=== PATIENT | female | born 1990 | race Caucasian/White ===

== ENCOUNTER → 2017-04-01 | Outpatient (CLI) | payer BC, OTHER ==
[2017-04-01 13:54] LABS: BASO % 0.2 %; BASO ABS # 0.01 K/uL (0-0.2); COMPLETE YES; EOS % 1.6 %; HEMATOCRIT 39.7 % (37-47); IG% 0.2 %; LYMPH % 27.4 %; LYMPH ABS # 1.53 K/uL (1.2-3.4); MEAN CORPUSCULAR HEMOGLOBIN 30.4 pg (25-34); MEAN CORPUSCULAR HGB CONC 34.5 g/dl (32-36); MEAN PLATELET VOLUME 9.6 fL (7.4-10.4); MONO % 10.9 %; NEUT % 59.7 %; PLATELET COUNT 312 K/uL (130-400); RED BLOOD COUNT 4.51 M/uL (4.2-5.4); WHITE BLOOD COUNT 5.59 K/uL (4.8-10.8)
[2017-04-01 14:04] LABS: ALT/SGPT 18 U/L (12-78); AST/SGOT 12 U/L (15-37); BLOOD UREA NITROGEN 8 mg/dl (7-18); BUN/CREATININE RATIO 12.4 (10-20); CALCIUM 9.1 mg/dl (8.5-10.1); CARBON DIOXIDE 28 mmol/L (21-32); CHLORIDE 104 mmol/L (98-107); CREATININE 0.68 mg/dl (0.60-1.20); GLUCOSE 93 mg/dl (70-99); POTASSIUM 3.9 mmol/L (3.5-5.1); SODIUM 138 mmol/L (136-145)
[2017-04-01 14:14] LABS: ALB/GLOB RATIO 1.2 (0.9-2); ALKALINE PHOSPHATASE 119 U/L (45-117); THYROID STIMULATING HORMONE 0.061 uIu/ml (0.300-4.500)
== END | disposition home or self-care (01) ==
LOC: C.LABSPEC 12:59
PROVIDERS: ATTEND Family Medicine
DX: E03.9 Hypothyroidism, unspecified (principal)

== ENCOUNTER → 2017-06-10 | Outpatient (CLI) | payer BC ==
[2017-06-15 17:40] LABS: ANA SCREEN TC 249X NEGATIVE (NEGATIVE); COMPLEMENT C4** TC 44982E 28 MG/DL (16-47); COMPLEMENT TOTAL(CH50)**45328P >60 U/mL (31-60); TSI <89 % baseline (<140)
== END | disposition home or self-care (01) ==
LOC: C.LABSPEC 13:15
PROVIDERS: ATTEND Family Medicine
DX: E03.9 Hypothyroidism, unspecified (principal); R63.5 Abnormal weight gain

== ENCOUNTER 2019-12-05 07:45 | Inpatient (IN) ==
[2019-12-05] MEDS ORDERED: OXYTOCIN 30 UNITS/500 ML BAG IV PRN ×2 (07:59→09:36)
--- NOTE | 2019-12-05 08:15 | History & Physical Report ---
Date of Service December 05, 2019 Assessment & Plan (1) : Tereza De Santiago is a 29 y/o female , at 40weeks; here for induction of labor - GBS positive; will give one dose Pen G now and then Q4h until delivery - continue heart monitoring and tocometry - consider Pitocin for labor augmentation - continue to monitor BP for concerns of pre-eclampsia - CBC/CMP pending (2) Gestational diabetes mellitus (GDM) controlled on oral hypoglycemic drug, antepartum: Admission and Anticipated Discharge Date Admission Date: December 05, 2019 History of Present Illness Primary Care Provider: Deny Esquivel Tereza De Santiago is a 29 y/o female , at 40weeks; being admitted for induction of labor; complications with GDM during this ; no contractions; good movement; no fluid loss; no vaginal blood loss; rodriguez bulb fell out last night prior to leaving L&D Labs: (06/07/19) Blood type: O+ Antibody screen: negatve H.8 Hct: 38.7 Rubella: immune VDRL/RPR: nonreactive Gonorrhea: negative Chlamydia: negative HIV: negative HbSAg: negative GBS + (11/08/19) Allergies Allergy/AdvReac Type Severity Reaction Status Date / Time No Known Allergies Allergy Verified 12/05/19 08:23 Home Medications Home Medications Medication Instructions Recorded Confirmed Type blood sugar diagnostic #150 ea 10/22/19 11/26/19 Rx lancets #100 ea 10/22/19 11/26/19 Rx metformin 500 mg PO BID 12/04/19 12/05/19 History vit [id number] 1 tab PO DAILY 12/04/19 12/05/19 History [ Vitamin] thyroid (pork) 130 mg PO DAILY 12/04/19 12/05/19 History Past Med/Surg History Medical History History of chicken pox Hypothyroidism Infertility tried for 2 years and conceived on Metformin SAB (spontaneous ) 2017; D&C Surgical History S/P dilatation and curettage [place] teeth removed Family History Sister Thyroid disease Brother Bicuspid aortic valve Social History Preferred Language: Vincentian Communication Ability: Effective 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 Beliefs That Will Affect Care: None marital status: marital status details: Alvaro Duncan (28) [phone] Current Living Situation: Spouse Current Living Situation Comment: lives with spouse, dogs current occupational status: employed current occupation: [employer] Other Information That Helps Us Care for You: No Feels Safe at Home: Yes Safety Concerns: Feels Safe At This Time Smoking Status: Never smoker Second Hand Exposure: No ; Hx Alcohol Use: No Hx Substance Use: No Review of Systems Review of Systems: Constitutional: denies fever; chills; sweats; headache Respiratory: denies shortness of breath, difficulty breathing Cardiac: denies chest pain; palpitations; chest pressure Breast: denies breast pain : denies dysuria Physical Exam Physical Exam: General: alert; oriented; no acute distress Cardiac: RRR; no m/g/r Respiratory: CTAB a/p; no wheezes/rales/rhonchi; no increased work of breathing; symmetrical chest rise; no respiratory distress Abdomen: soft; NT/ND; bowel sounds positive Lower extrem: no lower extremity edema or swelling; no deep calf pain; Deanna's sign negative b/l Genitourinary: OB Exam Abdomen: + vertex and + estimated weight (7-8 pounds) Manual OB Exam: + cervical dilation 4 cm (4-5 cm), + cervical effacement 90% and + station -1 (posterior) OB Exam Monitor Tracing: + external FHT monitor used, + external uterine monitor used, + category I and + normal FHT variability deferred cervical exam to Dr. Navarro Results & Data Results & Data ([facility]) Vital Signs (Past 12 Hours) Vital Signs Temp Pulse Resp BP 12/05/19 08:04 92 H 159/90 H 12/05/19 07:54 36.8 C 87 20 171/93 H Medications Administered Current Inpatient Medications Lactated Ringer's (Lr) 1,000 mls @ 125 mls/hr IV .Q8H PRN; Protocol PRN Reason: L&D Protocol Stop: 12/07/19 07:58 Oxytocin (Pitocin) 30 units in 500 mls @ 333.333 mls/hr IV .Q1H30M PRN; Protocol PRN Reason: Bleeding Control Stop: 01/04/20 07:58 Penicillin G Potassium 6 mu/ (Dextrose) 262 mls @ 262 mls/hr IV NOW STA Stop: 12/05/19 08:58 Penicillin G Potassium 3 mu/ (Dextrose) 106 mls @ 100 mls/hr IV Q4H PRN PRN Reason: Give until delivery Stop: 12/15/19 07:58 Supervising Physician Co-Signing Physician Notes Resident Physician Supervision Note: I interviewed and examined the patient. Discussed with Dr. Pichardo and agree with findings and plan as documented in the note. Any exceptions or clarifications are listed here: cervical exam performed by me. Documented By: Sarika Covington MD, FACOG Resident Activity Tracking Resident Involvement: Resident Care Provided Care Provided: OB Delivery
[2019-12-05] MEDS ORDERED: PENICILLIN G POTASSIUM 6 MU in DEXTROSE 5% 250 ML IV ONE (08:30)
[2019-12-05 08:31] LABS: Hematocrit (blood only) 40.3 % (37-47); Hemoglobin 13.6 g/dL (12.0-16.0); Mean Corpuscular Hemoglobin 30.2 pg (25-34); Mean Corpuscular Volume 89.4 fL (80-100); Mean Platelet Volume 9.8 fL (7.4-10.4); Platelet Count 306 K/uL (130-400); RDW Coefficient of Variation 13.7 % (11.5-14.5); RDW Standard Deviation 45.1 fL (36.4-46.3); Red Blood Count 4.51 M/uL (4.2-5.4); White Blood Count 8.76 K/uL (4.8-10.8)
[2019-12-05 08:36] LABS: Mean Corpuscular Hgb Conc 33.7 g/dL (32-36)
[2019-12-05 09:01] LABS: Albumin Level 2.5 gm/dl (3.4-5.0); BUN Creatinine Ratio 10.7 (10-20); Est GFR (African American) 138.4; Est GFR (Non-African American) 119.4; Potassium 3.7 mmol/L (3.5-5.1)
[2019-12-05 09:03] LABS: Albumin Globulin Ratio 0.7 (0.9-2); Bilirubin,Total 0.2 mg/dl (0.2-1); Globulin 3.7 gm/dl (2.5-4.0); Total Protein 6.2 gm/dl (6.4-8.2)
[2019-12-05] MEDS: LACTATED RINGER'S 1,000 ML IV PRN ×3 (09:25→16:53)
[2019-12-05] MEDS: PENICILLIN G POTASSIUM 3 MU in DEXTROSE 5% 100 ML IV PRN ×3 (12:59→21:11)
[2019-12-05] MEDS ORDERED: ePHEDrine sulfate 50 MG/ML AMP ONE (13:42)
[2019-12-05] MEDS ORDERED: fentaNYL 2MCG/ML ROPIV 1.25MG/ML 100 ML BAG EPI ONE (13:42)
[2019-12-05] MEDS ORDERED: BUPIVACAINE 0.25% 30 ML VIAL ONE (13:42)
[2019-12-05] MEDS ORDERED: fentaNYL citrate 100 MCG/2 ML VIAL ONE (13:42)
--- NOTE | 2019-12-05 15:02 | Anesthesiology Consultation ---
Date of Service December 05, 2019 Assessment & Plan Chart Review Chart Review: Acceptable Risk for Labor Epidural Consults Requested none History Height/Weight Height: 5 ft 2 in Weight: 106.141 kg Allergies Allergy/AdvReac Type Severity Reaction Status Date / Time No Known Allergies Allergy Verified 12/05/19 08:23 Medications Home Medications Medication Instructions Recorded Confirmed Last Taken blood sugar diagnostic #150 ea 10/22/19 11/26/19 Unknown lancets #100 ea 10/22/19 11/26/19 Unknown metformin 500 mg PO BID 12/04/19 12/05/19 12/05/19 06:00 vit [id number] 1 tab PO DAILY 12/04/19 12/05/19 12/04/19 23:00 [ Vitamin] thyroid (pork) 130 mg PO DAILY 12/04/19 12/05/19 12/05/19 06:00 Active Medications Generic Name Dose Route Start Last Admin Trade Name Freq PRN Reason Stop Dose Admin Lactated Ringer's 1,000 mls @ 125 mls/hr 12/05/19 07:59 12/05/19 13:45 Lr IV 12/07/19 07:58 999 mls/hr .Q8H PRN Infusion L&D Protocol Protocol Penicillin G Potassium 3 mu/ 106 mls @ 100 mls/hr 12/05/19 07:59 12/05/19 12:59 Dextrose IV 12/15/19 07:58 100 mls/hr Q4H PRN Administration Give until delivery Oxytocin 30 units in 500 mls @ 15 mls/hr 12/05/19 09:36 12/05/19 13:30 Pitocin IV 12/07/19 09:35 0.9 units/hr .Q24H PRN 15 mls/hr Labor Induction/Augmentation Titration Protocol 0.9 UNITS/HR Past Medical History Medical History History of chicken pox Hypothyroidism Infertility tried for 2 years and conceived on Metformin SAB (spontaneous ) 2017; D&C Past Family History Family History Sister Thyroid disease Brother Bicuspid aortic valve Past Surgical History Surgical History S/P dilatation and curettage [place] teeth removed Social History Smoking Status: Never smoker Hx Alcohol Use: No Hx Substance Use: No substance use type: does not use Physical Exam Vital Signs Last Vital Signs Temp 36.7 C 12/05/19 14:00 Pulse 96 H 12/05/19 14:59 Resp 20 12/05/19 14:00 BP 125/62 12/05/19 14:59 Pulse Ox 96 12/05/19 14:56 Testing Laboratory Results 12/05/19 08:04 12/05/19 08:11
[2019-12-05] MEDS ORDERED: ePHEDrine sulfate 50 MG/ML AMP IV PRN (15:04)
[2019-12-05] MEDS ORDERED: DiphenhydrAMINE HCL 50 MG/ML VIAL IV PRN (15:04)
[2019-12-05] MEDS ORDERED: fentaNYL 2MCG/ML ROPIV 1.25MG/ML 100 ML BAG EPI PRN (15:04)
[2019-12-05] MEDS ORDERED: NALBUPHINE HCL INJ 10 MG/ML AMP IV PRN (15:04)
[2019-12-05] MEDS ORDERED: NALOXONE HCL 1 MG in SODIUM CHLORIDE 0.9% 1000ML 1,000 ML IV PRN (15:04)
[2019-12-05] MEDS ORDERED: NALOXONE HCL 0.4 MG/1 ML VIAL/CARP IV PRN (15:04)
[2019-12-05] MEDS ORDERED: ONDANSETRON INJ 2 MG/ML 2 ML VIAL IV PRN (17:12)
[2019-12-06] MEDS ORDERED: bisacodyL 10 MG SUPP PR PRN (00:41)
[2019-12-06] MEDS ORDERED: DIPHTHERIA/TETANUS/PERTUSSIS 0.5 ML SYR/VIAL IM ONE (00:41)
[2019-12-06] MEDS ORDERED: OXYTOCIN 30 UNITS/500 ML BAG IV PRN (00:41)
[2019-12-06] MEDS ORDERED: SUPERCREAM 0.870% 15 GM JAR EXT PRN (00:41)
[2019-12-06] MEDS ORDERED: HYDROCORTISONE ACETATE 25 MG SUPP PR PRN (00:41)
[2019-12-06] MEDS ORDERED: ACETAMINOPHEN 325 MG TAB PO PRN (00:41)
[2019-12-06] MEDS ORDERED: OXYCODONE/ACETAMINOPHEN 5mg/325mg TAB PO PRN (00:44)
[2019-12-06] MEDS ORDERED: IBUPROFEN 600 MG TAB PO ONE (01:34)
--- NOTE | 2019-12-06 01:53 | Anesthesia Procedure Note ---
Date of Service December 06, 2019 Anesthesia Post Epidural Note Vital Signs Vital Signs: Temp Pulse Resp BP Pulse Ox 37.0 C 82 18 128/72 98 12/05/19 23:00 12/06/19 01:40 12/06/19 01:25 12/06/19 01:40 12/06/19 00:21 Pain Intensity Abdomen: Pain Intensity: 2 Notes Mental Status: alert / awake / arousable Nausea / Vomiting: adequately controlled Pain: adequately controlled Airway Patency, RR, SpO2: stable & adequate BP & HR: stable & adequate Hydration State: stable & adequate Neuraxial Anesthesia: was administered and sensory block is resolving Anesthetic Complications: no major complications apparent and Pt Satisfied with anesthetic care Epidural: Removed without complications and With tip intact
[2019-12-06] MEDS: BENZOCAINE 20% AER SPR 82.5 GM CAN EXT PRN (04:01)
--- NOTE | 2019-12-06 05:42 | Obstetrical Progress Note ---
Date of Service <Lopez Pichardo MD - Last Filed: 12/06/19 07:08> December 06, 2019 Assessment & Plan <Lopez Pichardo MD - Last Filed: 12/06/19 07:08> (1) : PPD#1: - doing well, ambulating well, tolerating oral intake - continue routine care - after discharge will have 6 week follow-up with Dr. Melanie Matthews <Lopez Pichardo MD - Last Filed: 12/06/19 07:08> Tereza De Santiago is a 29 y/o female ; PPD #1 following spontaneous vaginal delivery at 40 weeks; doing well this morning; minimal abdominal cramping/pain; voiding well; tolerating meals overnight; and able to ambulate some; some persistent spotting with intermittent improvement this morning. Review of Systems Constitutional: denies fever; chills; sweats; headache Respiratory: denies shortness of breath, difficulty breathing Cardiac: denies chest pain; palpitations; chest pressure Breast: denies breast pain : denies dysuria Physical Exam <Lopez Pichardo MD - Last Filed: 12/06/19 07:08> General: alert; oriented; no acute distress Cardiac: RRR; no m/g/r Respiratory: CTAB a/p; no wheezes/rales/rhonchi; no increased work of breathing; symmetrical chest rise; no respiratory distress Abdomen: soft; NT/ND; bowel sounds positive Uterus: uterine fundus firm; palpable 2cm below umbilicus Lower extrem: no lower extremity edema or swelling; no deep calf pain; Deanna's sign negative b/l Results & Data <Lopez Pichardo MD - Last Filed: 12/06/19 07:08> Vital Signs (Past 12 Hours) Vital Signs Temp Pulse Pulse Resp BP BP Pulse Ox 12/06/19 03:10 36.6 C 103 H 18 143/87 H 97 12/06/19 02:26 37.0 C 79 18 132/74 12/06/19 02:10 78 127/60 12/06/19 01:56 90 18 135/74 12/06/19 01:40 82 128/72 12/06/19 01:25 79 18 140/91 12/06/19 01:14 99 H 18 142/93 H 12/06/19 00:59 105 H 18 139/101 H 12/06/19 00:40 77 18 138/72 12/06/19 00:25 95 H 18 141/78 H 12/06/19 00:21 99 H 98 12/06/19 00:16 111 H 98 12/06/19 00:11 108 H 100 12/06/19 00:06 93 H 165/90 H 99 12/06/19 00:01 97 H 98 12/05/19 23:58 140 H 91 12/05/19 23:56 151 H 97 12/05/19 23:52 106 H 137/60 12/05/19 23:51 113 H 89 L 12/05/19 23:46 121 H 100 12/05/19 23:41 111 H 99 12/05/19 23:36 111 H 132/92 96 12/05/19 23:31 111 H 97 12/05/19 23:26 111 H 98 12/05/19 23:21 112 H 128/62 97 12/05/19 23:16 106 H 95 12/05/19 23:11 105 H 96 12/05/19 23:07 105 H 127/88 12/05/19 23:06 121 H 96 12/05/19 23:01 129 H 98 12/05/19 23:00 37.0 C 12/05/19 22:56 105 H 96 12/05/19 22:51 96 H 96 12/05/19 22:46 104 H 97 12/05/19 22:41 127 H 96 12/05/19 22:37 94 H 133/86 12/05/19 22:36 119 H 91 12/05/19 22:34 120 H 93 12/05/19 22:31 101 H 98 12/05/19 22:26 126 H 96 12/05/19 22:22 93 H 131/60 12/05/19 22:21 121 H 94 12/05/19 22:16 125 H 93 12/05/19 22:11 110 H 98 12/05/19 22:07 97 H 166/83 H 12/05/19 22:06 122 H 86 L 12/05/19 22:04 150 H 89 L 12/05/19 22:01 128 H 98 12/05/19 21:56 107 H 99 06/17/20 21:51 108 H 100 20 21:46 82 99 061720 21:41 86 98 20 21:36 112 H 99 20 21:31 87 98 20 21:26 104 H 99 20 21:21 81 98 20 21:16 91 H 97 20 21:11 76 97 20 21:06 79 96 20 21:01 83 98 20 21:00 36.5 C 20 20:56 90 99 1720 20:55 91 H 88 L 20 20:51 82 98 1720 20:46 78 99 1720 20:41 83 98 20 20:36 97 H 97 1720 20:31 79 98 20 20:26 77 96 1720 20:22 82 124/82 20 20:21 93 H 96 20 20:16 94 H 99 20 20:11 79 98 1720 20:06 105 H 137/94 97 1720 20:01 85 97 1720 19:56 96 H 98 20 19:52 101 H 135/93 1720 19:51 89 98 1720 19:46 85 97 1720 19:41 87 98 1720 19:36 74 99 1720 19:31 74 99 1720 19:26 77 98 1720 19:21 83 98 1720 19:16 83 99 1720 19:11 81 100 1720 19:07 36.5 C 83 18 153/84 H 20 19:06 79 99 1720 19:01 98 H 100 1720 19:00 20 20 18:56 79 99 1720 18:52 74 153/94 H 1720 18:51 86 98 1720 18:46 84 99 1720 18:41 68 100 1720 18:39 81 155/81 H 12/05/19 18:36 77 97 12/05/19 18:31 71 98 12/05/19 18:30 18 12/05/19 18:26 77 99 12/05/19 18:23 79 141/96 H 12/05/19 18:21 82 97 12/05/19 18:16 70 99 12/05/19 18:11 71 100 12/05/19 18:08 74 162/63 H 12/05/19 18:06 101 H 100 12/05/19 18:01 69 99 12/05/19 18:00 20 12/05/19 17:56 73 99 12/05/19 17:51 83 122/56 L 99 12/05/19 17:46 73 100 Laboratory Results 12/05/19 12/05/19 Range/Units 08:11 08:04 WBC 8.76 (4.8-10.8) K/uL RBC 4.51 (4.2-5.4) M/uL Hgb 13.6 (12.0-16.0) g/dL Hct 40.3 (37-47) % MCV 89.4 (80-100) fL MCH 30.2 (25-34) pg MCHC 33.7 (32-36) g/dL RDW Std Deviation 45.1 (36.4-46.3) fL RDW Coeff of Nelsy 13.7 (11.5-14.5) % Plt Count 306 (130-400) K/uL MPV 9.8 (7.4-10.4) fL Sodium 136 (136-145) mmol/L Potassium 3.7 (3.5-5.1) mmol/L Chloride 104 (98-107) mmol/L Carbon Dioxide 22 (21-32) mmol/L Anion Gap 10.0 (3-11) BUN 7 (7-18) mg/dl Creatinine 0.66 (0.6-1.2) mg/dl Est Cr Clr Drug Dosing 144.0 ml/min Est GFR ( Amer) 138.4 Est GFR (Non-Af Amer) 119.4 BUN/Creatinine Ratio 10.7 (10-20) Glucose 103 H (70-99) mg/dl Calcium 9.0 (8.5-10.1) mg/dl Total Bilirubin 0.2 (0.2-1) mg/dl AST 22 (15-37) U/L ALT 31 (12-78) U/L Alkaline Phosphatase 217 H (45-117) U/L Total Protein 6.2 L (6.4-8.2) gm/dl Albumin 2.5 L (3.4-5.0) gm/dl Globulin 3.7 (2.5-4.0) gm/dl Albumin/Globulin Ratio 0.7 L (0.9-2) Medications Administered Current Inpatient Medications Acetaminophen (Tylenol) 650 mg PO Q6H PRN PRN Reason: Pain/MILIAN/Fever Stop: 01/05/20 00:40 Benzocaine (Dermoplast Pain Relieving [place]) 1 appln EXT PRN PRN PRN Reason: Perineal Discomfort Stop: 01/05/20 00:40 Last Admin: 12/06/19 04:01 Dose: 1 appln Documented by: Bisacodyl (Dulcolax) 5 mg PO 1999 [facility] Stop: 12/07/19 20:01 Bisacodyl (Dulcolax) 10 mg IN DAILY PRN PRN Reason: No BM on 2nd post- day Stop: 01/05/20 00:40 Cocaine HCl (Supercream 0.870%) 1 gm EXT BID PRN PRN Reason: Hemorrhoidal Inflammation Stop: 12/20/19 00:40 Docusate Sodium (Colace) 100 mg PO DAILY@08,21 [facility] Stop: 01/05/20 07:59 Hydrocortisone (Anusol Hc) 25 mg IN BID PRN PRN Reason: Hemorrhoidal Inflammation Stop: 01/05/20 00:40 Lactated Ringer's (Lr) 1,000 mls @ 125 mls/hr IV .Q8H PRN; Protocol PRN Reason: L&D Protocol Stop: 12/07/19 07:58 Last Infusion: 12/05/19 19:01 Dose: 125 mls/hr Documented by: Oxytocin (Pitocin) 30 units in 500 mls @ 333.333 mls/hr IV .Q1H30M PRN; Protocol PRN Reason: Bleeding Control Stop: 01/04/20 07:58 Oxytocin (Pitocin) 30 units in 500 mls @ 333.333 mls/hr IV .Q1H30M PRN; Protocol PRN Reason: Bleeding Control Stop: 01/05/20 00:40 Ibuprofen (Motrin) 600 mg PO Q4H PRN PRN Reason: Pain/MILIAN/Cramping/Fever Stop: 01/05/20 00:40 Metformin HCl (Glucophage) 500 mg PO BID [facility] Stop: 01/05/20 08:59 Miscellaneous (Order Awaiting Action) 1 ea N/A QS [facility] Stop: 01/05/20 07:59 Ondansetron HCl (Zofran) 4 mg IV Q6H PRN PRN Reason: Nausea Stop: 01/04/20 17:11 Last Admin: 12/05/19 17:18 Dose: 4 mg Documented by: Oxycodone/Acetaminophen (Percocet 5mg/325mg) 1 tab PO Q4H PRN PRN Reason: Pain not relieved by... Stop: 12/20/19 00:43 Prenat Multivit/Erp Specialist/Iron/Folic Ac ( Vitamin) 1 tab PO DAILY@08 [facility] Stop: 01/05/20 07:59 <Sarika Covington MD, FACOG - Last Filed: 12/06/19 07:33> Co-Signing Physician Notes Resident Physician Supervision Note: I interviewed and examined the patient. Discussed with Dr. Pichardo and agree with findings and plan as documented in the note. Any exceptions or clarifications are listed here: [None] Documented By: Sarika Covington MD, FACOG Resident Activity Tracking <Lopez Pichardo MD - Last Filed: 12/06/19 07:08> Resident Involvement: Resident Care Provided Care Provided: OB Delivery
--- NOTE | 2019-12-06 08:38 | Delivery Summary ---
DATE OF OPERATION: 12/05/2019 The patient is a 29-year-old white female G1, P0 who presented for induction of labor because of gestational diabetes on metformin. She was seen on the evening of 12/04/2019 for cervical balloon insertion which was successful as she presented with a cervical dilation of 4-5 cm on the morning of 12/05/2019. She received Pitocin augmentation of her labor. She progressed to full dilation with effective epidural analgesia and pushed effectively over an intact perineum for delivery of a viable female infant. There was a loose nuchal cord present noted at delivery which was reduced prior to delivering the rest of the baby, which happened easily. The infant was placed on the mother's abdomen for further attention and drying. Immediately there was poor respiratory effort. Cord was clamped and cut after 30 seconds and the baby was taken to the baby bed for further evaluation and treatment. Within 1 minute of life there was vigorous crying and the infant was moving all 4 limbs. The placenta was expressed intact with a 3-vessel cord. Bilateral first degree labial tears were not bleeding except for 1 small area at the apex on the patient's left; that area was secured with a [id number] stitch of 3-0 chromic. Estimated blood loss was 300 mL. bleeding was controlled with dilute Pitocin. Mother and infant were doing well after delivery. I attest to the content of the Intraoperative Record and any orders documented therein. Any exception s are noted below.
[2019-12-06] MEDS ORDERED: METFORMIN HCL 500 MG TAB PO SCH (09:00)
[2019-12-06] MEDS: DOCUSATE SODIUM 100 MG CAP PO SCH ×2 (09:19→20:37)
[2019-12-06] MEDS: PRENATAL VITAMIN 1 TAB PO SCH (09:19)
[2019-12-06] MEDS: IBUPROFEN 600 MG TAB PO PRN ×4 (09:20→22:22)
--- NOTE | 2019-12-07 06:21 | Obstetrical Progress Note ---
Date of Service <Lopez Pichardo MD - Last Filed: 12/07/19 06:52> December 07, 2019 Assessment & Plan <Lopez Pichardo MD - Last Filed: 12/07/19 06:52> (1) : PPD#2: - doing well, ambulating well, tolerating oral intake - continue routine care - after discharge will have 6 week follow-up with Dr. Melanie Matthews <Lopez Pichardo MD - Last Filed: 12/07/19 06:52> Tereza De Santiago is a 29 y/o female ; PPD #2 following spontaneous vaginal delivery at 40 weeks; doing well this morning; minimal abdominal cramping/pain; voiding well; tolerating meals overnight; and able to ambulate some; some persistent spotting with intermittent improvement this morning. Review of Systems Constitutional: denies fever; chills; sweats; headache Respiratory: denies shortness of breath, difficulty breathing Cardiac: denies chest pain; palpitations; chest pressure Breast: denies breast pain : denies dysuria Physical Exam <Lopez Pichardo MD - Last Filed: 12/07/19 06:52> General: alert; oriented; no acute distress Cardiac: RRR; no m/g/r Respiratory: CTAB a/p; no wheezes/rales/rhonchi; no increased work of breathing; symmetrical chest rise; no respiratory distress Abdomen: soft; NT/ND; bowel sounds positive Uterus: uterine fundus firm; palpable 3cm below umbilicus Lower extrem: no lower extremity edema or swelling; no deep calf pain; Deanna's sign negative b/l Results & Data <Lopez Pichardo MD - Last Filed: 12/07/19 06:52> Vital Signs (Past 12 Hours) Vital Signs Temp Pulse Resp BP 12/06/19 22:45 36.6 C 105 H 18 157/89 H 12/06/19 20:30 36.5 C 106 H 18 142/88 H Laboratory Results 12/07/19 Range/Units 06:17 WBC 10.49 (4.8-10.8) K/uL RBC 3.77 L (4.2-5.4) M/uL Hgb 11.2 L (12.0-16.0) g/dL Hct 33.9 L (37-47) % MCV 89.9 (80-100) fL MCH 29.7 (25-34) pg MCHC 33.0 (32-36) g/dL RDW Std Deviation 46.0 (36.4-46.3) fL RDW Coeff of Nelsy 14.1 (11.5-14.5) % Plt Count 249 (130-400) K/uL MPV 9.7 (7.4-10.4) fL Medications Administered Current Inpatient Medications Acetaminophen (Tylenol) 650 mg PO Q6H PRN PRN Reason: Pain/MILIAN/Fever Stop: 01/05/20 00:40 Benzocaine (Dermoplast Pain Relieving [place]) 1 appln EXT PRN PRN PRN Reason: Perineal Discomfort Stop: 01/05/20 00:40 Last Admin: 12/06/19 04:01 Dose: 1 appln Documented by: Bisacodyl (Dulcolax) 5 mg PO 1999 [facility] Stop: 12/07/19 20:01 Bisacodyl (Dulcolax) 10 mg UT DAILY PRN PRN Reason: No BM on 2nd post- day Stop: 01/05/20 00:40 Cocaine HCl (Supercream 0.870%) 1 gm EXT BID PRN PRN Reason: Hemorrhoidal Inflammation Stop: 12/20/19 00:40 Docusate Sodium (Colace) 100 mg PO DAILY@08,21 [facility] Stop: 01/05/20 07:59 Last Admin: 12/06/19 20:37 Dose: 100 mg Documented by: Hydrocortisone (Anusol Hc) 25 mg UT BID PRN PRN Reason: Hemorrhoidal Inflammation Stop: 01/05/20 00:40 Lactated Ringer's (Lr) 1,000 mls @ 125 mls/hr IV .Q8H PRN; Protocol PRN Reason: L&D Protocol Stop: 12/07/19 07:58 Last Infusion: 12/05/19 19:01 Dose: 125 mls/hr Documented by: Oxytocin (Pitocin) 30 units in 500 mls @ 333.333 mls/hr IV .Q1H30M PRN; Protocol PRN Reason: Bleeding Control Stop: 01/04/20 07:58 Oxytocin (Pitocin) 30 units in 500 mls @ 333.333 mls/hr IV .Q1H30M PRN; Protocol PRN Reason: Bleeding Control Stop: 01/05/20 00:40 Ibuprofen (Motrin) 600 mg PO Q4H PRN PRN Reason: Pain/MILIAN/Cramping/Fever Stop: 01/05/20 00:40 Last Admin: 12/06/19 22:22 Dose: 600 mg Documented by: Ondansetron HCl (Zofran) 4 mg IV Q6H PRN PRN Reason: Nausea Stop: 01/04/20 17:11 Last Admin: 12/05/19 17:18 Dose: 4 mg Documented by: Oxycodone/Acetaminophen (Percocet 5mg/325mg) 1 tab PO Q4H PRN PRN Reason: Pain not relieved by... Stop: 12/20/19 00:43 Prenat Multivit/[place]/Iron/Folic Ac ( Vitamin) 1 tab PO DAILY@08 [facility] Stop: 01/05/20 07:59 Last Admin: 12/06/19 09:19 Dose: 1 tab Documented by: <Jose Armando Roman MD, FACOG - Last Filed: 12/07/19 07:04> Co-Signing Physician Notes Resident Physician Supervision Note: I interviewed and examined the patient. Discussed with Dr. Pichardo and agree with findings and plan as documented in the note. Any exceptions or clarifications are listed here: [None] Documented By: Jose Armando Roman MD, FACOG Resident Activity Tracking <Lopez Pichardo MD - Last Filed: 12/07/19 06:52> Resident Involvement: Resident Care Provided Care Provided: OB Delivery
[2019-12-07 06:35] LABS: Hematocrit (blood only) 33.9 % (37-47); Hemoglobin 11.2 g/dL (12.0-16.0); Mean Corpuscular Hemoglobin 29.7 pg (25-34); Mean Corpuscular Volume 89.9 fL (80-100); Mean Platelet Volume 9.7 fL (7.4-10.4); Platelet Count 249 K/uL (130-400); RDW Coefficient of Variation 14.1 % (11.5-14.5); Red Blood Count 3.77 M/uL (4.2-5.4); White Blood Count 10.49 K/uL (4.8-10.8)
[2019-12-07] MEDS: PRENATAL VITAMIN 1 TAB PO SCH (07:38)
[2019-12-07] MEDS: DOCUSATE SODIUM 100 MG CAP PO SCH (07:38)
[2019-12-07] MEDS: IBUPROFEN 600 MG TAB PO PRN ×2 (07:39→12:41)
[2019-12-07] MEDS: BENZOCAINE 20% AER SPR 82.5 GM CAN EXT PRN (10:42)
[2019-12-07] MEDS ORDERED: bisacodyL 5 MG TABEC PO SCH (20:00)
== END 2019-12-07 13:40 | disposition home or self-care (01) | DRG 807 ==
LOC: 4S1 07:45 → 4S2 12-06 02:55

== ENCOUNTER 2021-11-11 02:14 | Inpatient (IN) ==
[2021-11-11] MEDS ORDERED: PENICILLIN G POTASSIUM 6 MU in DEXTROSE 5% 250 ML IV STA (02:35)
[2021-11-11] MEDS ORDERED: OXYTOCIN 30 UNITS/500 ML BAG IV PRN ×3 (02:35→16:18)
[2021-11-11] MEDS: LACTATED RINGER'S 1,000 ML IV PRN ×2 (02:45→04:06)
[2021-11-11] MEDS ORDERED: BUPIVACAINE 0.25% 30 ML VIAL ONE ×2 (03:03→14:00)
[2021-11-11] MEDS ORDERED: ePHEDrine sulfate 50 MG/ML AMP ONE (03:03)
[2021-11-11] MEDS ORDERED: SODIUM CHLORIDE 0.9% INJ 10 ML VIAL ONE ×2 (03:03→14:00)
[2021-11-11] MEDS ORDERED: fentaNYL citrate 100 MCG/2 ML VIAL ONE (03:03)
[2021-11-11] MEDS ORDERED: fentaNYL 2MCG/ML ROPIVACAINE 1.25MG/ML 100 ML BAG EPI ONE (03:04)
[2021-11-11 03:20] LABS: Hematocrit (blood only) 39.5 % (37-47); Hemoglobin 13.8 g/dL (12.0-16.0); Mean Corpuscular Hgb Conc 34.9 g/dL (32-36); Mean Corpuscular Volume 88.8 fL (80-100); Mean Platelet Volume 9.5 fL (7.4-10.4); Platelet Count 275 K/uL (130-400); RDW Coefficient of Variation 12.9 % (11.5-14.5); RDW Standard Deviation 41.9 fL (36.4-46.3); Red Blood Count 4.45 M/uL (4.2-5.4); White Blood Count 10.72 K/uL (4.8-10.8)
--- NOTE | 2021-11-11 03:35 | Anesthesiology Consultation ---
Date of Service November 11, 2021 Assessment & Plan (1) Encounter for pre-operative examination: Chart Review Chart Review: Acceptable Risk for Labor Epidural History Height/Weight Height: 5 ft 1 in Weight: 104.78 kg Allergies Allergy/AdvReac Type Severity Reaction Status Date / Time No Known Allergies Allergy Verified 11/11/21 02:27 Medications Home Medications Medication Instructions Recorded Confirmed Last Taken vits no.124-ferrous fum 1 tab PO DAILY 12/04/19 11/11/21 11/10/21 27 mg iron-folic acid 800 mcg tablet ( Vitamin) levothyroxine 175 mcg tablet 175 mcg PO DAILY #90 tab 08/28/21 11/11/21 11/10/21 Active Medications Generic Name Dose Route Start Last Admin Trade Name Freq PRN Reason Stop Dose Admin Lactated Ringer's 1,000 mls @ 125 mls/hr 11/11/21 02:35 11/11/21 02:45 Lr IV 11/13/21 02:34 999 mls/hr .Q8H PRN Administration L&D Protocol Protocol Past Medical History Medical History History of chicken pox Hypothyroidism Infertility tried for 2 years and conceived on Metformin Obesity (BMI 30-39.9) Primary hypothyroidism SAB (spontaneous ) 2017; D&C Past Family History Family History Sister Thyroid disease Brother Bicuspid aortic valve Mother Hypertension Past Surgical History Surgical History S/P dilatation and curettage [place] teeth removed Social History Smoking Status: Never smoker Hx Alcohol Use: No Hx Substance Use: No substance use type: does not use Physical Exam Vital Signs Last Vital Signs Temp 36.9 C 11/11/21 02:35 Pulse 100 H 11/11/21 02:25 Resp 18 11/11/21 02:35 BP 141/86 H 11/11/21 02:25 Testing Laboratory Results 11/11/21 03:08
[2021-11-11] MEDS ORDERED: NALOXONE HCL 1 MG in SODIUM CHLORIDE 0.9% 1000ML 1,000 ML IV PRN (04:11)
[2021-11-11] MEDS ORDERED: fentaNYL 2MCG/ML ROPIVACAINE 1.25MG/ML 100 ML BAG EPI PRN (04:11)
[2021-11-11] MEDS ORDERED: ePHEDrine sulfate 50 MG/ML AMP IV PRN (04:11)
[2021-11-11] MEDS ORDERED: NALOXONE HCL 0.4 MG/1 ML VIAL/CARP IV PRN (04:11)
--- NOTE | 2021-11-11 06:34 | History & Physical Report ---
Date of Service November 11, 2021 Assessment & Plan (1) SROM (spontaneous rupture of membranes): (2) Group beta Strep positive: (3) Obesity (BMI 30-39.9): Plan: admitted in labor. gbs pos and given pcn. apparent forebag per nurse but will plan reexamine after pcn 2nd dose infused. apparently census to high to currently safely augment pitocin as I am told per nursing, suspect will need to. fhts categ 1. pt comfortable and aware of plan. Admission and Anticipated Discharge Date Admission Date: November 11, 2021 History of Present Illness Chief Complaint: contractions and leaking fluid Primary Care Provider: Deny Esquivel, DO 31yo at 40 0/7 wks [place] presents to L&D with above cc. Leaking clear fluid and regular contractions brought her to L&D where cx check by nursing 8cm posterior. Admitted in labor and received epidural. Resting now. Denies pain. PNC c/b 1. obesity 2. gbs pos 3. hypothyroid. 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 nl paps Allergies Allergy/AdvReac Type Severity Reaction Status Date / Time No Known Allergies Allergy Verified 11/11/21 02:27 Home Medications Medication Instructions Recorded Confirmed Type vits no.124-ferrous fum 1 tab PO DAILY 12/04/19 11/11/21 History 27 mg iron-folic acid 800 mcg tablet ( Vitamin) levothyroxine 175 mcg tablet 175 mcg PO DAILY #90 tab 08/28/21 11/11/21 Rx Patient History Medical History History of chicken pox Hypothyroidism Infertility tried for 2 years and conceived on Metformin Obesity (BMI 30-39.9) Primary hypothyroidism SAB (spontaneous ) 2018; D&C Surgical History S/P dilatation and curettage [place] teeth removed Family History Sister Thyroid disease Brother Bicuspid aortic valve Mother Hypertension Social History (Updated 03/25/21 @ 15:17 by Danna Almonte) Smoking Status: Never smoker Second Hand Exposure: No; Hx Alcohol Use: No Hx Substance Use: No Preferred Language: Vietnamese Communication Ability: Effective Strip Picker Required: No Beliefs That Will Affect Care: None marital status: marital status details: Alvaro Duncan (30) [phone] Current Living Situation: Spouse Current Living Situation Comment: house with and daughter current occupational status: employed current occupation: [employer] Other Information That Helps Us Care for You: No Feels Safe at Home: Yes Safety Concerns: Feels Safe At This Time Assistive Devices: None Review of Systems as per Subjective / HPI Physical Exam Constitutional: WD/WN, vitals as above Respiratory: normal respiratory effort, lungs clear to auscultation Cardiovascular: Rate/Rhythm: regular rate and regular rhythm Gastrointestinal (Abdomen): soft gravid nt [id number]# Musculoskeletal: no edema Neurologic: grossly normal Psychiatric: A+Ox3, euthymic affect Genitourinary: Manual OB Exam: + cervical dilation (8cm, high, ? forebag per nurse) OB Exam Monitor Tracing: + external FHT monitor used, + external uterine monitor used (q4), + category I and + normal FHT variability Results & Data ([facility]) Vital Signs (Past 12 Hours) Vital Signs Temp Pulse Resp BP Pulse Ox 11/11/21 06:25 100 H 99 11/11/21 06:20 86 112/54 L 97 11/11/21 06:15 91 H 98 11/11/21 06:10 101 H 98 11/11/21 06:05 90 114/60 99 11/11/21 06:00 87 97 11/11/21 05:55 85 97 11/11/21 05:50 92 H 108/63 97 11/11/21 05:45 101 H 98 11/11/21 05:40 104 H 99 11/11/21 05:35 93 H 102/58 L 96 11/11/21 05:30 87 98 11/11/21 05:25 86 98 11/11/21 05:20 77 110/61 96 11/11/21 05:15 82 96 11/11/21 05:10 73 97 11/11/21 05:06 74 113/62 11/11/21 05:05 74 97 11/11/21 05:00 75 18 97 11/11/21 04:55 74 97 11/11/21 04:50 70 119/71 98 11/11/21 04:45 69 99 11/11/21 04:40 77 98 11/11/21 04:36 72 121/80 11/11/21 04:35 76 99 11/11/21 04:30 74 18 98 11/11/21 04:25 97.9 F 75 18 100 11/11/21 04:20 80 132/69 99 11/11/21 04:16 73 136/66 11/11/21 04:15 77 98 11/11/21 04:14 77 134/62 11/11/21 04:11 84 138/64 11/11/21 04:10 87 132/64 97 11/11/21 04:08 97 H 132/69 11/11/21 04:06 86 160/99 H 11/11/21 04:05 84 98 11/11/21 04:02 106 H 163/102 H 11/11/21 04:00 104 H 164/106 H 96 11/11/21 03:55 107 H 97 11/11/21 03:50 85 100 11/11/21 03:45 84 100 11/11/21 03:44 82 141/76 H 11/11/21 03:40 100 H 99 11/11/21 03:35 79 98 11/11/21 02:35 98.4 F 18 11/11/21 02:29 98.4 F 18 11/11/21 02:25 100 H 141/86 H Coding Level of Care Code None Diagnoses SROM (spontaneous rupture of membranes) Group beta Strep positive B95.1 Obesity (BMI 30-39.9) E66.9
[2021-11-11] MEDS: PENICILLIN G POTASSIUM 3 MU in DEXTROSE 5% 100 ML IV PRN ×3 (06:38→14:39)
[2021-11-11] MEDS: ONDANSETRON INJ 2 MG/ML 2 ML VIAL IV PRN ×2 (06:41→14:36)
[2021-11-11] MEDS ORDERED: SILVER NITR/POTASSIUM NITRATE APPLICATOR ONE (16:04)
[2021-11-11] MEDS ORDERED: ACETAMINOPHEN 325 MG TAB PO PRN (16:18)
[2021-11-11] MEDS ORDERED: DIPHTHERIA/TETANUS/PERTUSSIS 0.5 ML SYR/VIAL IM ONE (16:18)
[2021-11-11] MEDS ORDERED: bisacodyL 10 MG SUPP PR PRN (16:18)
[2021-11-11] MEDS ORDERED: HYDROCORTISONE ACETATE 25 MG SUPP PR PRN (16:18)
[2021-11-11] MEDS ORDERED: BENZOCAINE 20% AER SPR 82.5 GM CAN EXT PRN (16:18)
[2021-11-11] MEDS ORDERED: oxyCODONE/ACETAMINOPHEN 5mg/325mg TAB PO PRN (16:18)
--- NOTE | 2021-11-11 16:34 | Delivery Summary ---
Vaginal Delivery Summary Date of Service November 11, 2021 Vaginal Delivery Summary Patient is a 31-year-old 2 para 1-0-0-1 white female EDC of 11/11/2021 who presented with rupture membranes for clear fluid followed by spontaneous contractions. She was GBS positive and received adequate GBS prophylaxis. She requested epidural analgesia which was effective. With Pitocin augmentation of her labor she progressed to full dilation and initially did not have the urge to push. After period of laboring down, she was then able to push effectively for delivery of a viable female infant. After the head was delivered there was noted to be a tight double nuchal cord which was clamped and cut prior to delivering the rest of the . The shoulders delivered easily and the infant was placed on the mother's abdomen for further drying and stimulation. Initially the infant had poor respiratory effort, but with further stimulation she was crying and moving all 4 limbs. After cord blood was obtained, the placenta was expressed intact with a three-vessel cord. bleeding was controlled with dilute Pitocin and fundal massage. Asymptomatic skin tag on the patient's right buttock was removed with scissors. The bleeding was controlled with silver nitrate and direct pressure. Perineum was noted to be intact except for superficial abrasion of the labia. Estimated blood loss is 300 cc mother and were doing well. [facility] [place] Vaginal Delivery Charge Delivery Type Details: [facility]
--- NOTE | 2021-11-11 16:53 | Anesthesia Procedure Note ---
Date of Service November 11, 2021 Anesthesia Post Epidural Note Vital Signs Vital Signs: Temp Pulse Resp BP Pulse Ox 97.7 F 85 18 132/63 99 11/11/21 16:42 11/11/21 16:50 11/11/21 16:42 11/11/21 16:50 11/11/21 16:11 Pain Intensity Back: Pain Intensity: 0 Notes Mental Status: alert / awake / arousable and participated in evaluation Nausea / Vomiting: adequately controlled Pain: adequately controlled Airway Patency, RR, SpO2: stable & adequate BP & HR: stable & adequate Hydration State: stable & adequate Neuraxial Anesthesia: was administered and sensory block is resolving Anesthetic Complications: no major complications apparent and Pt Satisfied with anesthetic care Epidural: Removed without complications and With tip intact
[2021-11-11] MEDS: IBUPROFEN 600 MG TAB PO PRN ×2 (17:32→21:29)
[2021-11-11] MEDS: DOCUSATE SODIUM 100 MG CAP PO SCH (19:32)
[2021-11-12] MEDS: IBUPROFEN 600 MG TAB PO PRN ×4 (01:35→14:25)
--- NOTE | 2021-11-12 05:49 | Obstetrical Progress Note ---
Date of Service <Dale Gomez MD - Last Filed: 11/12/21 07:32> November 12, 2021 Assessment & Plan <Dale Gomez MD - Last Filed: 11/12/21 07:32> (1) Vaginal delivery: 31 yo now PPD1 from at 40wk0d -Discharge today, instructions reviewed with patient -Vitals reviewed- HDS, afebrile -GBS+, treated with PCN intrapartum -F/u in 6 weeks with OB <Sarika Covington MD, FACOG - Last Filed: 11/12/21 07:35> (1) Vaginal delivery: Subjective <Dale Gomez MD - Last Filed: 11/12/21 07:32> Ambulation: ambulating normally Voiding: no voiding problems Passing Gas:: Yes Diet Tolerance:: regular diet Lochia:: Small Feeding Type:: breast feeding Current Pain Level(1-10): 5 Pt doing well overall, no acute complaints or distress. Reports pain around epidural site. Pain well controlled with Motrin PRN + heating pad. improving, would like to see team today. Also would like to go home. Review of Systems Denies fever/chills. Denies dyspnea, cough. Denies chest pain. Denies breast pain or discharge. Denies dysuria. Denies headache. Denies back pain. Physical Exam <Dale Gomez MD - Last Filed: 11/12/21 07:32> General: Alert, oriented, no acute distress Cardiac: Regular rate and rhythm, normal S1, S2. No murmurs appreciated. Respiratory: Clear to auscultation b/l with good air flow entry, symmetric chest rise and fall. No wheezes or crackles. No increased work of breathing or accessory muscle use Abdomen: Soft, nontender, nondistended. Fundus firm and palpable at 2 cm below umbilicus. No guarding or rebound. Skin: No rashes or lesions Extremities: Warm, dry, well-perfused with capillary refill <2s b/l. No lower extremity edema, erythema, swelling or calf tenderness b/l. Results & Data ([facility]) <Dale Gomez MD - Last Filed: 11/12/21 07:32> Vital Signs (Past 12 Hours) Vital Signs Temp Pulse Pulse Resp BP BP Pulse Ox 11/12/21 04:50 36.6 C 94 H 16 122/68 95 11/11/21 22:10 36.8 C 74 16 130/88 96 11/11/21 19:25 36.8 C 87 16 138/83 97 11/11/21 18:35 36.7 C 92 H 18 125/75 97 11/11/21 18:06 93 H 131/70 <Sarika Covington MD, FACOG - Last Filed: 11/12/21 07:35> Co-Signing Physician Notes Resident Physician Supervision Note: I interviewed and examined the patient. Discussed with Dr. Gomez and agree with findings and plan as documented in the note. Any exceptions or clarifications are listed here: [None] Documented By: Sarika Covington MD, FACOG Resident Activity Tracking <Dale Gomez MD - Last Filed: 11/12/21 07:32> Resident Involvement: Resident Care Provided Care Provided: OB Delivery
[2021-11-12] MEDS ORDERED: LEVOTHYROXINE SODIUM 175 MCG TABLET PO SCH (06:30)
[2021-11-12 07:20] LABS: Hematocrit (blood only) 38.1 % (37-47); Hemoglobin 13.2 g/dL (12.0-16.0); Mean Corpuscular Hemoglobin 31.4 pg (25-34); Mean Corpuscular Hgb Conc 34.6 g/dL (32-36); Mean Corpuscular Volume 90.7 fL (80-100); Mean Platelet Volume 9.9 fL (7.4-10.4); Platelet Count 266 K/uL (130-400); RDW Coefficient of Variation 13.2 % (11.5-14.5); RDW Standard Deviation 42.9 fL (36.4-46.3); White Blood Count 13.19 K/uL (4.8-10.8)
[2021-11-12] MEDS ORDERED: PRENATAL VITAMIN 1 TAB PO SCH (08:00)
[2021-11-12] MEDS: DOCUSATE SODIUM 100 MG CAP PO SCH (08:28)
[2021-11-12] MEDS ORDERED: bisacodyL 5 MG TABEC PO SCH (20:00)
== END 2021-11-12 16:55 | disposition home or self-care (01) | DRG 807 ==
LOC: OPB 02:14 → 4S1 02:16 → 4E2 18:57